=== PATIENT | female | born 1965 | race Caucasian/White ===

== ENCOUNTER 2020-04-14 16:39 | Emergency (ER) | payer SELFPAY ==
[~2020-04-14] VITALS: Ht 154.9 cm; Wt 42.0 kg
--- NOTE | 2020-04-14 17:26 | NUR ---
PT C/O COUGH AND SOB FOR ABOUT 6 MONTHS WITH 46 PACK YEAR HISTORY OF SMOKING. PT TESED NEGATIVE IN JANUARY FOR COVID 19. PT DENIES CP. PT WAS TACHY AND SATING IN LOW 90'S IN TRIAGE. PT PLACED ON MONITOR. LAB AND XRAY AT BEDSIDE.
[2020-04-14 17:29] LABS: BASOPHILS # (AUTO) 0.07 x10^3/uL (0-0.1); BASOPHILS % (AUTO) 1 % (0-1); EOSINOPHILS # (AUTO) 0.05 x10^3/uL (0-0.4); EOSINOPHILS % (AUTO) 1 % (1-7); LYMPHOCYTES # (AUTO) 1.54 x10^3/uL (1-3.4); LYMPHOCYTES % (AUTO) 17 % (22-44); MD NO; MEAN CORPUSCULAR HEMOGLOBIN 30.5 pg (27.0-34.8); MONOCYTES # (AUTO) 0.21 x10^3/uL (0.2-0.8); MONOCYTES % (AUTO) 2 % (2-9); NEUTROPHILS # (AUTO) 7.31 x10^3/uL (1.8-6.8); NEUTROPHILS % (AUTO) 80 % (42-75); PLATELET COUNT 396 x10^3/uL (130-400); RED BLOOD COUNT 5.01 x10^6/uL (3.82-5.3); RED CELL DISTRIBUTION WIDTH 14.1 % (9.6-15.2)
[2020-04-14 17:41] LABS: ALANINE AMINOTRANSFERASE 15 U/L (12-78); ALBUMIN 2.9 g/dL (3.4-5.0); ANION GAP 10 mmol/L (5-15); CALCIUM 8.3 mg/dL (8.5-10.1); CHLORIDE 97 mmol/L (98-107); CREATININE 0.55 mg/dL (0.55-1.02)
[2020-04-14 17:45] LABS: ALKALINE PHOSPHATASE 126 U/L (45-117); BILIRUBIN,TOTAL 0.3 mg/dL (0.2-1.0); TOTAL PROTEIN 7.5 g/dL (6.4-8.2); TROPONIN I < 0.015 ng/mL (0.000-0.045)
--- NOTE | 2020-04-14 17:45 | NUR ---
REPORT TO ARTEM WATTS FOR LUNCH BREAK.
--- NOTE | 2020-04-14 18:40 | NUR ---
CHART UP FOR MD RECHECK. PT AWARE.
--- NOTE | 2020-04-14 19:25 | NUR ---
PT REPORTS SHE FEELS MUCH BETTER. WAITING FOR MD RECHECK STILL.
--- NOTE | 2020-04-14 19:54 | NUR ---
PT TO BE DISCHARGED WITH HOME OXYGEN AT HOME. WAITING FOR DME TO BE ARRANGED AT HOME BY THROUGHPUT NURSE.
[2020-04-14 20:31] VITALS: BP 108/75
--- NOTE | 2020-04-14 21:21 | NUR ---
WAITING FOR CONCENTRATOR TO BE BROUGHT HERE THEN PT WILL BE SENT HOME WITH HOME OXYGEN.
--- NOTE | 2020-04-14 21:21 | NUR ---
KEE RN: [facility] WILL BE BRINGING HOME O2 FOR PT, ETA 2200.
[2020-04-14] MEDS ORDERED: OMNIPAQUE 350 MG/ML, 100ML BOTTLE ONE (21:38)
== END 2020-04-14 22:00 | disposition home or self-care (01) ==
LOC: ED 18:15
DX: J84.9 Interstitial pulmonary disease, unspecified (principal); E87.1 Hypo-osmolality and hyponatremia; E87.6 Hypokalemia; E46 Unspecified protein-calorie malnutrition; F17.210 Nicotine dependence, cigarettes, uncomplicated; R00.0 Tachycardia, unspecified
CPT/HCPCS: 36415; 71045; 71275; 80053; 83880; 84484; 85025; 93005; 99285; 99406; Q9967